=== PATIENT | female | born 1935 | race Hispanic/Latino ===

== ENCOUNTER → 2017-03-10 | Outpatient (CLI) | payer MEDICARE, BC | END | disposition home or self-care (01) | LOC: GMAH 14:19 | PROVIDERS: ATTEND Family Medicine | DX: N39.0 Urinary tract infection, site not specified (principal) ==

== ENCOUNTER → 2017-03-31 | Outpatient (CLI) | payer MEDICARE, BC ==
--- NOTE | 2017-03-31 15:50 | CT ---
EXAM DESCRIPTION: Abdomen t/Pelvis w/o Contrast CLINICAL HISTORY: 81 years, 81 years, Female, Female, GENERALIZED ABDOMINAL PAIN COMPARISON: None. TECHNIQUE: CT of the abdomen and pelvis is performed according to our non contrast protocol This exam was performed according to our departmental dose-optimization program, which includes automated exposure control, adjustment of the mA and/or kV according to patient size and/or use of iterative reconstruction technique. FINDINGS: The lung bases are clear without effusion or infiltrate and a small retrocardiac hiatal hernia is noted. The liver is normal in appearance without evidence of bile duct obstruction or focal mass. A small normal spleen is noted and unenhanced imaging of the pancreas shows no abnormality. Curvilinear calcification just behind the pancreatic body suggests an approximate 1 cm splenic artery aneurysm with a second smaller subcentimeter splenic artery aneurysm in the splenic hilum. The gallbladder is not identified and presumed surgically absent. The right kidney is severely atrophic and presumably related to old ischemic disease or inflammatory changes a small dense benign calcification is nonspecific in the upper pole of the atrophic right kidney. A small upper pole punctate calcification on the left is also apparent with mild cortical atrophy in this region with a probable 1 cm benign cyst posteriorly and medially involving the mid left kidney. The left renal collecting system appears very slightly full and represents either a mild UPJ obstruction with caliectasis or very possibly parapelvic renal cysts. No worrisome solid renal masses are noted. The retroperitoneum and aorta and vena cava is unremarkable. Levoscoliosis and degenerative changes in the spine are present without destructive bony process identified. The anterior abdominal wall is unremarkable. Large and small bowel caliber is normal without significant ascites or mesenteric adenopathy. The bladder is normally distended and the uterus is surgically absent without adnexal mass. IMPRESSION: 1. Atrophic right kidney with small benign calcification in the upper pole without hydronephrosis. 2. Hypertrophic left kidney with mild cortical scarring and benign calcification in the upper pole with either parapelvic cysts or mild UPJ obstruction of the left collecting system. Small benign cyst posteriorly is noted 3. Scoliosis and multilevel degenerative changes of the lumbar spine and incidental note of small hiatal hernia. 4. The gallbladder is not identified and presumed surgically absent. 5. Probable small splenic artery aneurysms 1 cm or less in size. 6. Small hiatal hernia. Electronically signed by: Seth Wright MD 03/31/2017 3:48 PM CDT
== END | disposition home or self-care (01) ==
LOC: CT 09:13
PROVIDERS: ATTEND Family Medicine
DX: R10.84 Generalized abdominal pain (principal)

== ENCOUNTER → 2017-09-15 | Outpatient (CLI) | payer MEDICARE, BC | END | disposition home or self-care (01) | LOC: GMAH 10:23 | PROVIDERS: ATTEND Family Medicine | DX: E78.2 Mixed hyperlipidemia (principal) ==

== ENCOUNTER → 2017-09-29 | Outpatient (CLI) | payer MEDICARE, BC | END | disposition home or self-care (01) | LOC: MAMMO 11:37 | PROVIDERS: ATTEND Family Medicine | DX: Z12.31 Encounter for screening mammogram for malignant neoplasm of breast (principal) ==

== ENCOUNTER → 2018-02-27 | Outpatient (CLI) | payer MEDICARE, BC | LOC: GMAH 14:28 | PROVIDERS: ATTEND Family Medicine | DX: N39.0 Urinary tract infection, site not specified (principal) ==

== ENCOUNTER 2018-03-15 17:30 | Emergency (ER) | payer MEDICARE, BC ==
[2018-03-15 17:50] VITALS: TEMP 99
[2018-03-15] MEDS: ACETAMINOPHEN 325 MG TAB PO ONE ×2 (18:24→18:26)
[2018-03-15] MEDS ORDERED: SODIUM CHLORIDE 0.9% 500ML 500 ML IVS ONE (18:50)
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
--- NOTE | 2018-03-15 19:23 | CT ---
EXAM DESCRIPTION: Head CLINICAL HISTORY: ams COMPARISON: None Available TECHNIQUE: Contiguous axial CT images of the head were obtained. Coronal and sagittal reconstructions were created from the axial data. This exam was performed according to our departmental dose-optimization program, which includes automated exposure control, adjustment of the mA and/or kV according to patient size and/or use of iterative reconstruction technique. FINDINGS: Poorly defined foci of decreased attenuation do not exert significant mass effect on surrounding structures and are likely sequela of prior insult, most likely on the basis of small vessel disease. There is no evidence of acute mass, mass effect, midline shift or hemorrhage. The ventricles and extra-axial CSF spaces are unremarkable. The brain parenchyma appears otherwise normal for the patient's age. No acute abnormalities of the bones is seen. IMPRESSION: No acute intracranial abnormality. MRI is much more sensitive and specific for acute ischemia than CT and if there is persistent concern for acute ischemia, I recommend MRI. Electronically signed by: Keyur Feldman 03/15/2018 7:22 PM CDT
[2018-03-15] MEDS ORDERED: cefTRIAXone SODIUM 1 GM in SODIUM CHL 0.9% 50ML MIN-BAG+ 50 ML IVPB ONE (20:13)
[2018-03-15] MEDS ORDERED: SODIUM CHL 0.9% 50ML MIN-BAG+ 50 ML IVPB ONE (20:40)
[2018-03-15] MEDS ORDERED: cefTRIAXone SODIUM 1 GM VIAL ONE (20:40)
[2018-03-15 21:04] VITALS: BP 124/70; O2SAT 97
== END 2018-03-15 21:04 | disposition home or self-care (01) ==
LOC: ER 17:30
DX: R53.83 Other fatigue (principal); N39.0 Urinary tract infection, site not specified; E86.0 Dehydration; T50.995A Adverse effect of other drugs, medicaments and biological substances, initial encounter; R74.0 Nonspecific elevation of levels of transaminase and lactic acid dehydrogenase [LDH]; I44.7 Left bundle-branch block, unspecified; E78.00 Pure hypercholesterolemia, unspecified; K21.9 Gastro-esophageal reflux disease without esophagitis; E07.9 Disorder of thyroid, unspecified; Z79.02 Long term (current) use of antithrombotics/antiplatelets
CPT/HCPCS: 70450; 80053; 81001; 82550; 82553; 84484; 85025; 87077; 87086; 87186; 93005; J0696; J7040; J7050

== ENCOUNTER 2018-04-05 07:23 | Emergency (ER) | payer MEDICARE, BC ==
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
[2018-04-05] MEDS ORDERED: ORPHENADRINE CITRATE 30 MG/ML AMP IM ONE (07:55)
[2018-04-05] MEDS ORDERED: KETOROLAC TROMETHAMINE INJ 30 MG/ML VIAL IM ONE (07:57)
--- NOTE | 2018-04-05 08:29 | RAD ---
EXAM DESCRIPTION: Cervical Spine,3 Views CLINICAL HISTORY: pain COMPARISON: MR spine the same visit. TECHNIQUE: Lateral image of the entire cervical spine, AP image. Open-mouth image C1-C2. FINDINGS: Cervical type vertebra: 7. Only C1-C5 are well seen on the lateral view. Disk spaces: C3-4, C4-5, and C5-6 with disc space narrowing and anterior endplate ridging. Facet joints: Included joints are unremarkable. Compression deformities: None. Bone Density: Normal. Alignment: Lack of normal lordosis. Atlanto-axial joint: Not well seen. Soft tissues: Negative. IMPRESSION: Limited study. Muscle spasms limiting lordosis and positioning of head properly for atlantoaxial view. Only C1-C5 are well seen on the lateral view. Spondylosis C3-4, C4-5, and C5-C6. Electronically signed by: Keyur Ramirez MD 04/05/2018 8:28 AM CDT
--- NOTE | 2018-04-05 08:34 | RAD ---
EXAM DESCRIPTION: Lumbar Spine 3 Views CLINICAL HISTORY: pain COMPARISON: 3 views cervical spine on the same visit. TECHNIQUE: AP, lateral radiographs of the entire lumbar spine. Spot-lateral radiograph of the lumbar sacral junction. FINDINGS: Lumbar type vertebra: 5. Transitional vertebrae: Rudimentary ribs on T12. Disk spaces: Narrowing L1-2, L2-3, and L3-4 with endplate ridging. Also endplate ridging at T10-11 and T11-12. Posterior and left narrowing at L5-S1. Facet joints: Bilateral arthrosis L5-S1, left more than right. Compression deformities: None. Bone Density: Minimally decreased. Alignment: Approximately 15 degrees lumbar dextroscoliosis. Trace retrolisthesis at L2-3. Abdomen: Bowel gas pattern is nonspecific. IMPRESSION: Multiple levels of disc space narrowing and spondylosis with approximately 15 degrees lumbar levoscoliosis. No compression type vertebral body fractures and no significant spondylolisthesis. Electronically signed by: Keyur Ramirez MD 04/05/2018 8:32 AM CDT
[2018-04-05 08:51] VITALS: BP 134/58; TEMP 97.3; O2SAT 95
== END 2018-04-05 08:51 | disposition home or self-care (01) ==
LOC: ER 07:23
DX: M54.2 Cervicalgia (principal); M51.16 Intervertebral disc disorders with radiculopathy, lumbar region; M62.838 Other muscle spasm; K21.9 Gastro-esophageal reflux disease without esophagitis; E07.9 Disorder of thyroid, unspecified; Z86.73 Personal history of transient ischemic attack (TIA), and cerebral infarction without residual deficits; Z79.02 Long term (current) use of antithrombotics/antiplatelets
CPT/HCPCS: 72040; 72100; J1885; J2360

== ENCOUNTER → 2018-04-18 | Outpatient (CLI) | payer MEDICARE, BC ==
--- NOTE | 2018-04-18 13:32 | MRI ---
EXAM DESCRIPTION: Brain w/o Contrast: MRI. CLINICAL HISTORY: CEREBROVASCULAR DISEASE UNSPECIFIED COMPARISON: MRI scan of the brain 05/31/2013. TECHNIQUE: Multiplanar, high-field MRI unit, multiple diffusion sequences, multiple conventional sequences without contrast. FINDINGS: Bilateral focal and confluent regions of hyperintense FLAIR and T2-weighted signal in the periventricular white matter and trujillo-white matter junctions of the cerebral hemispheres. Larger lesions abutting the ventricles. Relatively symmetric distribution bilaterally. . No hemorrhage, no cerebral edema, no mass-effect. Minimal hyperintense signal bilateral insular cortex. Also in the anterior limb and posterior aspect of the right basal ganglia. Normal signal in the brainstem and cerebellar hemispheres. No hemorrhage, no cerebral edema, no mass-effect. Concordance of the diffusion and non-diffusion sequences with no diffusion restriction. Cortical sulci, ventricles, and other CSF spaces, and the subdural spaces are normally configured for patients age. No effacement or displacement. No midline shift. No extra-axial hemorrhage. Normal flow signal void in the major vessels of the [place], and the venous sinuses. IACs are symmetric bilaterally. Normal signal in the bilateral mastoid air cells. No mass effect in the bilateral cerebellopontine angles. Pituitary gland occupies most of the sella. Base of the cerebellar tonsils is at the level of the foramen magnum. Paranasal sinuses are unremarkable. The bony calvarium is intact. IMPRESSION: 1. Bilateral confluent and focal white matter hyperintensities in the periventricular white matter more than the subcortical white matter has progressed minimally since the prior study. Relatively symmetric involvement bilaterally. Also involvement of the bilateral insular cortex in the right basal ganglia. Basal ganglia involvement is also slightly progressed since the prior study. Not associated with hemorrhage, mass effect, or diffusion restriction. This is most likely age-related changes and cerebral microvascular disease. 2. Normal noncontrast MRI diffusion study with no evidence of acute or subacute infarction. Electronically signed by: Keyur Ramirez MD 04/18/2018 1:30 PM CDT
== END ==
LOC: MRI 08:00
PROVIDERS: ATTEND Psychiatry & Neurology Neurology
DX: I67.9 Cerebrovascular disease, unspecified (principal); I65.1 Occlusion and stenosis of basilar artery; M54.12 Radiculopathy, cervical region

== ENCOUNTER → 2018-04-19 | Outpatient (CLI) | payer MEDICARE, BC | LOC: GMAH 17:08 | PROVIDERS: ATTEND Family Medicine | DX: N30.00 Acute cystitis without hematuria (principal) ==

== ENCOUNTER → 2018-07-11 | Outpatient (CLI) | payer MEDICARE, BC | LOC: GMAH 16:46 | PROVIDERS: ATTEND Family Medicine | DX: N39.0 Urinary tract infection, site not specified (principal) ==

== ENCOUNTER → 2018-09-28 | Outpatient (CLI) | payer MEDICARE, BC | LOC: GMAH 10:37 | PROVIDERS: ATTEND Family Medicine | DX: E78.2 Mixed hyperlipidemia (principal) ==

== ENCOUNTER → 2018-10-10 | Outpatient (CLI) | payer MEDICARE, BC ==
--- NOTE | 2018-10-11 15:42 | MAM ---
EXAM DESCRIPTION: 3D Screening BILATERAL : Digital Mammography. CLINICAL HISTORY: 82 years Female SCREEN . No complaints. No personal history of breast cancer. Remote family history of breast cancer. Childbirth. Postmenopausal. No HRT. Lifetime risk of developing breast cancer (Tyrer-Cuzick model)(%): 1.4. COMPARISON: Bilateral screening digital breast tomosynthesis September 29 2017.. No prior reports available. TECHNIQUE: Bilateral CC and MLO projection full-field images, digital tomosynthesis mammographic technique. Bilateral digital 2-D full-field MLO images. CAD not available for tomosynthesis or 2-D images. FINDINGS: The breast parenchymal density pattern is: Scattered areas of fibroglandular density. No skin thickening or nipple retraction. Bilateral vascular calcifications. Bilateral solitary microcalcifications. Mass density with heterogeneous calcifications in the middle third of the lateral right breast stable since the prior study. Also anterior coarse calcification associated with a small mass density stable. These are consistent with degenerating fibroadenomas. No new focal, stellate mass or density, focal asymmetry , and no suspicious microcalcifications bilaterally. Stable mammograms compared to prior study. IMPRESSION: Benign exam. BIRAD CATEGORY: 2 BENIGN FINDINGS. RECOMMENDATIONS: FOLLOW UP: Routine digital bilateral mammographic screening, one year interval from September 2018. Written communication explaining the IMPRESSION and follow-up, will be mailed to the patient and referring health care provider. According to the [employer], yearly mammograms are recommended starting at age 40 and continuing as long as a woman is in good health. Any breast change noted on a breast self-exam should be reported promptly to the patient's healthcare provider. Breast MRI is recommended for women with an approximately 20-25% or greater lifetime risk of breast cancer, including women with a strong family history of breast or ovarian cancer and women who have been treated for Hodgkin's disease. A negative mammographic report should not delay tissue diagnosis in patients with significant clinical history or physical findings. Extremely dense breast tissue limits the sensitivity of digital mammography. Electronically signed by: Keyur Ramirez MD 10/11/2018 3:40 PM [employer]
== END ==
LOC: MAMMO 09:00
PROVIDERS: ATTEND Family Medicine
DX: Z12.31 Encounter for screening mammogram for malignant neoplasm of breast (principal)

== ENCOUNTER → 2018-11-06 | Outpatient (CLI) | payer BC | LOC: GMAH 11:04 | PROVIDERS: ATTEND Family Medicine | DX: E03.8 Other specified hypothyroidism (principal) ==

== ENCOUNTER 2018-12-09 17:33 | Observation (INO) | payer MEDICARE, OTHER ==
[2018-12-09] MEDS ORDERED: PROMETHAZINE HCL INJ 25 MG in SODIUM CHLORIDE 0.9% 50ML 50 ML IVPB ONE (17:56)
[2018-12-09] MEDS ORDERED: PROMETHAZINE HCL INJ 25 MG/ML VIAL ONE (18:07)
[2018-12-09] MEDS ORDERED: SODIUM CHLORIDE 0.9% 50ML 50 ML ONE (18:08)
[2018-12-09] MEDS ORDERED: SOD CHL 3% *HYPERTONIC* 500ML 160 ML IVS ONE (18:20)
[2018-12-09] MEDS ORDERED: ACETYLCYSTEIN 20 % 6,000 MG/30 ML VIAL PO ONE (18:51)
--- NOTE | 2018-12-09 18:51 | RAD ---
EXAM DESCRIPTION: Abdomen Series CLINICAL HISTORY:83 years Female, [place] Comparison: May 08, 2018 FINDINGS: No focal lung consolidation. No pleural effusion. No pneumothorax. Cardiac and mediastinal silhouette is unremarkable. No acute osseous abnormality. lumbar spine degenerative changes. Soft tissues are unremarkable. Nonobstructive bowel gas pattern. No evidence of free air. IMPRESSION: No acute findings within the chest or abdomen. Electronically signed by: Epi Tucker MD 12/09/2018 6:48 PM CDT
--- NOTE | 2018-12-09 21:30 | CT ---
PROCEDURE: Abdomen/Pelvis w/Contrast (accession [id number]), CTA Chest (accession [id number]) CLINICAL HISTORY: 83 years Female nv, diaphoresis, cp, d-dimer, elevated lft, lipase COMPARISON: 03/31/2017. TECHNIQUE: Contiguous axial images were obtained through the chest during the infusion of IV contrast. Reformatted images obtained. MIP reformatted images obtained. Axial dynamic imaging was acquired through the abdomen and pelvis with multiplanar reconstructions. This exam was performed according to our department optimization program which includes automated exposure control, adjustment of the mA and/or kv according to patient size and/or use of iterative reconstruction technique. FINDINGS: Chest: The aorta is normal in caliber without dissection or rupture. Moderately large hiatal hernia. Mild cardiac enlargement. No pericardial or pleural effusion. No hilar or mediastinal adenopathy. No convincing evidence of pulmonary blood. Patchy dependent atelectasis. No evidence of acute consolidation. Abdomen pelvis: Fatty infiltration of the liver. There is mild intra and extrahepatic ductal dilatation likely as a result of cholecystectomy changes. There is clinical concern MRCP could be acquired. The gallbladder is absent. The pancreas and adrenal glands are unremarkable. Spleen is normal in size. There is atrophy of the right kidney with areas of calcification. Calcification in the superior pole the left kidney which may be vascular. Mild prominence of the left renal collecting system without definite obstructing stone noted. This may be as a result of distention of the urinary bladder. Moderate fecal material in the colon. No evidence of bowel obstruction. No free fluid is noted. Small amount of gas is present in the urinary bladder. No evidence of appendicitis. Aorta is normal in caliber. IMPRESSION:No evidence of pulmonary embolus. However at the time of dictation no thin section (less than 3 mm) axial imaging has been provided despite request. This is the standard for CTA chest. When these are made available, an addendum will be issued Hiatal hernia Fatty liver Prominent intra and extra hepatic ductal dilatation likely as a result of cholecystectomy changes Mild left hydronephrosis without delayed nephrogram. Suspect this is a result of distended urinary bladder. Recently passed stone or nonradiopaque obstruction cannot be entirely excluded Atrophic right kidney No additional evidence of acute process Electronically signed by: Ev Payton MD 12/09/2018 9:26 PM CDT
[2018-12-09] MEDS ORDERED: cefTRIAXone SODIUM 1 GM in SODIUM CHL 0.9% 50ML MIN-BAG+ 50 ML IVPB ONE (22:18)
[2018-12-09] MEDS ORDERED: PANTOPRAZOLE SODIUM IV 40 MG VIAL IV ONE (22:19)
--- NOTE | 2018-12-09 22:28 | ED.PDOC ---
History of Present Illness - General Chief Complaint: Chest Pain/LA Stated Complaint: vomiting,dizziness,chest pressure Time Seen by Provider: 12/09/18 17:38 Source: patient, family Exam Limitations: no limitations - History of Present Illness Initial Comments: the patient's an 83-year-old female brought in by her family secondary to nausea and vomiting starting earlier this morning. The patient thinks that she has gone up between 10 and 20 times. No blood and no bile. She is not really having any abdominal pain. She did break out in a sweat with throwing up once or twice and she did she feels [place] little bit of vomiting this one time. She did have significant anxiety with that. The patient has a history of some mild to moderately elevated liver function tests possibly related to biliary tree scarring from previous cholecystectomy. The patient received a dose of Phenergan here and has not had any further nausea or vomiting since. She denies any history of any hyponatremia. No fevers. No difficulties with urination. Timing/Duration: other - 16 hours Severity: moderate Improving Factors: nothing Worsening Factors: nothing Associated Symptoms: cough, malaise, nausea/vomiting Allergies/Adverse Reactions: Allergies Codeine Allergy (Verified 03/15/18 17:50) Shortness of Breath Home Medications: Ambulatory Orders Alendronate Sodium [Fosamax] 70 mg PO WKLY 07/12/15 Atorvastatin Calcium [Lipitor] 10 mg PO BEDTIME 07/12/15 Clopidogrel Bisulfate [Plavix] 75 mg PO BEDTIME 07/12/15 Levothyroxine Sodium 88 mcg PO DAILY 07/12/15 Pantoprazole Sodium 40 mg PO DAILY 07/12/15 ALPRAZolam [Xanax] 0.25 mg PO PRN 04/05/18 Tramadol HCl 50 mg PO PRN 04/05/18 Review of Systems - Review of Systems Constitutional: States: diaphoresis - with vomiting, malaise EENTM: States: no symptoms reported Respiratory: States: cough - only when she felt that she inhaled a little bit of vomitus Cardiology: States: chest pain - while vomiting Gastrointestinal/Abdominal: States: nausea, vomiting Genitourinary: States: no symptoms reported Musculoskeletal: States: no symptoms reported Skin: States: no symptoms reported Neurological: States: no symptoms reported Endocrine: States: no symptoms reported All other Systems: No Change from Baseline Past Medical History (General) - Patient Medical History Hx Stroke: Yes - TIA's Hx Cardiac Disorders: Yes - high cholesterol Hx Congestive Heart Failure: No Hx Thyroid Disease: Yes Hx Diabetes: No Hx Gastroesophageal Reflux: Yes Surgical History: cholecystectomy, Hysterectomy - Vaccination History Hx Influenza Vaccination: Yes Hx Pneumococcal Vaccination: No - Social History Hx Tobacco Use: No Hx Alcohol Use: No Hx Physical Abuse: No Hx Emotional Abuse: No - Female History Patient : No Family Medical History - Family History Mother Family History: Unknown Living Status: Physical Exam - Physical Exam General Appearance: Alert, Anxious, No apparent distress Eye Exam: bilateral normal Ears, Nose, Throat: hearing grossly normal, normal ENT inspection Neck: non-tender, supple Respiratory: lungs clear, normal breath sounds, no respiratory distress, no accessory muscle use Cardiovascular/Chest: normal peripheral pulses, regular rate, rhythm, no edema Peripheral Pulses: radial,right: 2+, radial,left: 2+, dorsalis pedis,right: 2+, dorsalis pedis,left: 2+ Gastrointestinal/Abdominal: non tender, soft, other - no palpable mass. No point tenderness. No rebound or peritoneal signs. Rectal Exam: deferred Back Exam: normal inspection, no CVA tenderness Extremity: normal range of motion, non-tender, normal inspection, no pedal edema, normal capillary refill Neurologic: clinical studies specialist II-XII nml as tested, alert, normal mood/affect, oriented x 3 Skin Exam: normal color Comments: Vital Signs - 24 hr 12/09/18 12/09/18 17:46 18:44 Temperature 98.8 F Pulse Rate 66 Pulse Rate [ 79 Left Brachial] Respiratory 20 Rate Blood Pressure 153/80 [Left Arm] O2 Sat by Pulse 99 Oximetry 12/09/18 17:55 Telemetry .CONTINUOUS 12/09/18 18:16 EKG .ONCE normal sinus rhythm at 70 bpm. Left axis deviation. Left bundle branch block. EKG is consistent with EKG from February 2018. No significant new changes. CT scan of the chest abdomen and pelvis fails to show any obvious acute pathology. She does have chronic changes of the renal system as well as of the biliary system.she does have moderate constipation. No obvious vascular acute pathology. Laboratory Results - last 24 hr 12/09/18 12/09/18 12/09/18 17:55 17:55 17:56 WBC 5.3 RBC 3.87 L Hgb 11.1 L Hct 33.8 L MCV 87.4 MCH 28.8 MCHC 32.9 L RDW 14.1 Plt Count 200 MPV 7.5 Absolute Neuts (auto) 3.70 Absolute Lymphs (auto) 1.30 Absolute Monos (auto) 0.30 Absolute Eos (auto) 0.00 Absolute Basos (auto) 0.00 Neutrophils % 69.0 Lymphocytes % 24.4 Monocytes % 6.1 Eosinophils % 0.1 L Basophils % 0.4 PT INR PTT (SP) 22.8 D-Dimer, Quantitative Sodium 129 L Potassium 3.8 Chloride 100 L Carbon Dioxide 20 L Anion Gap 12.8 BUN 16 Creatinine 0.79 BUN/Creatinine Ratio 20.3 H Random Glucose 109 H Serum Osmolality 260.7 L Calcium 8.4 Magnesium 1.9 Total Bilirubin 1.1 H AST 260 H ALT 120 H Alkaline Phosphatase 111 Creatine Kinase 135 CK-MB (CK-2) 5.2 H* CK-MB (CK-2) % 3.85 Troponin I < 0.02 B-Natriuretic Peptide 35.6 Serum Total Protein 7.6 Albumin 3.8 Globulin 3.8 H Albumin/Globulin Ratio 1.0 L Amylase 142 H Lipase 103 H Urine Color Urine Appearance Urine pH Ur Specific [place] Urine Protein Urine Glucose (UA) Urine Ketones Urine Blood Urine Nitrite Urine Bilirubin Urine Urobilinogen Ur Leukocyte Esterase Urine RBC Urine WBC Ur Epithelial Cells Urine Bacteria 12/09/18 12/09/18 12/09/18 17:56 17:57 19:45 WBC RBC Hgb Hct MCV MCH MCHC RDW Plt Count MPV Absolute Neuts (auto) Absolute Lymphs (auto) Absolute Monos (auto) Absolute Eos (auto) Absolute Basos (auto) Neutrophils % Lymphocytes % Monocytes % Eosinophils % Basophils % PT 10.1 INR 1.01 PTT (SP) D-Dimer, Quantitative 1.65 H* Sodium Potassium Chloride Carbon Dioxide Anion Gap BUN Creatinine BUN/Creatinine Ratio Random Glucose Serum Osmolality Calcium Magnesium Total Bilirubin AST ALT Alkaline Phosphatase Creatine Kinase CK-MB (CK-2) CK-MB (CK-2) % Troponin I B-Natriuretic Peptide Serum Total Protein Albumin Globulin Albumin/Globulin Ratio Amylase Lipase Urine Color Yellow Urine Appearance Sl cloudy Urine pH 7.0 Ur Specific [place] 1.010 Urine Protein Negative Urine Glucose (UA) Negative Urine Ketones Negative Urine Blood Negative Urine Nitrite Negative Urine Bilirubin Negative Urine Urobilinogen 0.2 Ur Leukocyte Esterase Trace H Urine RBC 1-3 Urine WBC 3-5 H Ur Epithelial Cells 3-5 Urine Bacteria 2+ H Progress - Progress Progress: 12/09/18 22:32 the patient is an 83-year-old female presenting secondary to nausea and vomiting for the better part of the day. This was fairly acute in onset. No evidence of any obstruction on the CT scan. This is most likely a viral or bacterial gastroenteritis. The patient is receiving a dose of Rocephin for what is a small urinary tract infection as well as for the possible mild episode of aspiration earlier with a vomiting episode. The patient is receiving hypertonic saline for correction of hyponatremia which may also be contributing to continued nausea. The patient has responded very well to a dose of Phenergan and has not required any additional dosing. Admit overnight for correction of the above issues. She is receiving small amount of additional IV fluid. The patient does have chronic changes in her biliary system. If the patient fails to improve with above measures then additional GI intervention and workup may be warranted if it is felt that that the chronic biliary problem is progressing and starting to give symptoms. She has received a dose of Protonix. She is resting comfortably currently. Admit for above measures. Departure - Departure Clinical Impression: Acute gastroenteritis, Cystitis, Hyponatremia, Advanced age Disposition: Admit Patient Departure Forms: ED Discharge - Pt. Copy, Patient Portal Self Enrollment Referrals: Earl Morrissey MD [Primary Care Provider] - 1-2 Weeks Home Medications: Ambulatory Orders Alendronate Sodium [Fosamax] 70 mg PO WKLY 07/12/15 Atorvastatin Calcium [Lipitor] 10 mg PO BEDTIME 07/12/15 Clopidogrel Bisulfate [Plavix] 75 mg PO BEDTIME 07/12/15 Levothyroxine Sodium 88 mcg PO DAILY 07/12/15 Pantoprazole Sodium 40 mg PO DAILY 07/12/15 ALPRAZolam [Xanax] 0.25 mg PO PRN 04/05/18 Tramadol HCl 50 mg PO PRN 04/05/18 Decision To Admit - Decistion To Admit Decision to Admit Reason: Medical Nature Decision to Admit Date: 12/09/18 Decision to Admit Time: 22:35
[2018-12-09] MEDS ORDERED: cefTRIAXone SODIUM 1 GM VIAL ONE (22:29)
[2018-12-09] MEDS ORDERED: SODIUM CHL 0.9% 50ML MIN-BAG+ 50 ML IVPB ONE (22:30)
[2018-12-09] MEDS ORDERED: SODIUM CHLORIDE 0.9% (FLUSH) 10 ML SYG IV PRN (23:43)
[2018-12-09] MEDS ORDERED: ONDANSETRON INJ 4 MG/2 ML VIAL IV PRN (23:43)
[2018-12-09] MEDS ORDERED: IV SET AND CAP CHANGE INJ INJ SCH (23:45)
[2018-12-09] MEDS ORDERED: KCL 20 MEQ/NS 1,000 ML IVS PRN (23:52)
[2018-12-10] MEDS ORDERED: PANTOPRAZOLE SODIUM IV 40 MG VIAL IV SCH (06:30)
[2018-12-10] MEDS ORDERED: SODIUM CHL 0.9% 50ML MIN-BAG+ 50 ML IVPB ONE (09:31)
[2018-12-10] MEDS ORDERED: cefTRIAXone SODIUM 1 GM VIAL ONE (09:31)
[2018-12-10] MEDS ORDERED: cefTRIAXone SODIUM 1 GM in SODIUM CHL 0.9% 50ML MIN-BAG+ 50 ML IVPB SCH (10:00)
[2018-12-10 17:43] VITALS: BP 163/79; TEMP 97.8; O2SAT 97
[2018-12-10] MEDS ORDERED: CLOPIDOGREL 75 MG TAB PO SCH (21:00)
[2018-12-10] MEDS ORDERED: ATORVASTATIN 10 MG TAB PO SCH (21:00)
[2018-12-11] MEDS ORDERED: LEVOTHYROXINE SODIUM 0.088 MG TAB PO SCH (06:30)
[2018-12-11] MEDS ORDERED: PANTOPRAZOLE SODIUM TAB 40 MG PO SCH (06:30)
--- NOTE | 2018-12-11 08:37 | SSS ---
SUPERVISING PHYSICIAN: Carlo Carpenter MD CHIEF COMPLAINT: Nausea and vomiting. HISTORY OF PRESENT ILLNESS: Ms. Reddy is an 83-year-old, female that was brought to the Emergency Room by her family after she started having some nausea and vomiting earlier the morning yesterday. The patient thinks it was around 10 o'clock when she ate and around 1 o'clock, she started having nausea and vomiting where she had at least 3 episodes. In the Emergency Room, initial workup showed she had a normal white count. Chemistries showed sodium 129, glucose 109. Liver enzymes were elevated with bilirubin 1.1, both AST and ALT were elevated as well as amylase and lipase. Urinalysis showed just a trace of leukocyte esterase and microscopic revealing 1 to 3 RBCs, 3+ bacteria, 3 to 5 WBCs. She was started on 3% hypertonic saline solution, given Phenergan, Protonix and Zofran. Her symptoms improved. She also had a CT of the abdomen with contrast and CT of the chest which showed no evidence of pulmonary embolism. Hiatal hernia was noted as well as fatty liver. There was also note of prominent intra and extrahepatic ductal dilation, likely result of cholecystectomy changes. There is some mild left hydronephrosis without delayed nephrogram, suspect result of distended urinary bladder although recently passed stone or nonradiopaque obstruction could not be excluded. Also of note was an atrophic right kidney and no other evidence of acute process. She is now going to be placed in Observation for further evaluation and ongoing hydration therapy due to persistent nausea and vomiting and unable to hold any oral medications in. She was placed in Observation in stable condition. PAST MEDICAL HISTORY: 1. Multiple mini strokes/transient ischemic attacks. 2. Anxiety disorder. 3. Obstructive sleep apnea on CPAP. 4. Single kidney due to atrophy of a kidney as a young child. 5. Hypothyroidism. 6. Gastroesophageal reflux disease. PAST SURGICAL HISTORY: 1. Cholecystectomy. 2. Rotator cuff repair, both shoulders. 3. Hysterectomy. HOME MEDICATIONS: 1. Pantoprazole 40 mg daily. 2. Xanax 0.25 mg as needed. 3. Lipitor 10 mg at bedtime. 4. Fosamax 70 mg weekly. 5. Plavix 75 mg at bedtime. 6. Levothyroxine 88 mcg daily. 7. Tramadol 50 mg p.r.n. ALLERGIES: CODEINE. FAMILY HISTORY: Mother in her 60s from multiple strokes. Father in his 80s after a heart attack. She has four siblings, a brother who was an insulin dependent diabetic who in his 60s, one sister in her 50s from a brain aneurysm, one sister is 87 and has had mini strokes, another older sister is 86 and fairly healthy. She has four children, one at age 45 with diabetes, brain aneurysm. She has another son who is alive and healthy and two daughters, one has diabetes and cardiovascular disease, the other is fairly healthy with no major medical problems. SOCIAL HISTORY: The patient lives in [place]. She is and retired. She used to work in the house cleaning industry. She has never smoked, drank and does not use illicit drugs. REVIEW OF SYSTEMS: CONSTITUTIONAL: Positive for diaphoresis with vomiting, general malaise, nausea. HEENT: Negative for sore throats, earaches, nasal congestion, vision changes. RESPIRATORY: Positive for cough secondary to WILFREDO inhibitors. Negative for any shortness of breath, wheezing. CARDIOVASCULAR: Chest discomfort with vomiting, no peripheral edema, no syncopal episodes. GASTROINTESTINAL: As noted in history of present illness, nausea, vomiting. No diarrhea, constipation or abdominal pain. GENITOURINARY: Negative for dysuria, hematuria, polyuria. SKIN: Negative for lesions or rashes. NEUROLOGIC: Negative for ataxia, seizures, syncopal episodes, headaches. PHYSICAL EXAMINATION: VITAL SIGNS: On admission, temperature 98.8. Pulse 79. Blood pressure 153/80. Respirations 20. Oxygen saturation 99% on room air. Discharge vital signs showed temperature 97.8. Pulse 59. Blood pressure 163/79. Respirations 20. Oxygen saturation 97% on room air. Admission weight 69.3 kg. GENERAL: On admission to the Medical/Surgical Floor, the patient was without any obvious acute distress. She was resting comfortably with no complaints of nausea or vomiting. She was alert. HEENT: Tympanic membranes clear bilaterally. Oropharynx is pink, moist without any lesions. NECK: Supple, nontender with full range of motion. No jugular venous distention noted. RESPIRATORY: Lungs clear to auscultation bilaterally without any rhonchi, wheezes, or rales. CARDIOVASCULAR: Regular rate and rhythm without any appreciable murmurs, gallops, or rubs. ABDOMEN: Soft, nontender. No point tenderness. No rebound or peritoneal signs. Positive bowel sounds. RECTAL: Deferred. BACK: Normal to inspected with no CVA tenderness. EXTREMITIES: There is no cyanosis, clubbing or edema. NEUROLOGIC: The patient is alert and oriented times three. Cranial nerves II- XII are grossly intact. Facial features are symmetrical. Extraocular movements are within normal limits. There is no nystagmus noted. SKIN: Dry and normal color with no lesions or rashes. LABORATORY: CBC showed normal white count of 5,300, hemoglobin 11.1, hematocrit 32.8, platelet count 200,000. Differential without a left shift. Coagulation studies showed elevated D-dimer of 1.65 with PT 10.1 and PTT 22.8. Chemistries showed sodium 129, potassium 3.8, carbon dioxide 20, BUN 16, creatinine 0.79, blood glucose 109 on admission, calcium 8.4. Liver functions showed some elevation with bilirubin 1.1, initially with AST 260, ALT 120. Alkaline phosphatase was within normal limits. Troponin less than 0.02. Amylase and lipase both elevated at 142 and 143 respectively. At discharge, electrolytes were normal with BUN 13, creatinine 0.83. Amylase had normalized, lipase had normalized. Her liver enzymes were returning to baseline levels with AST 100, ALT 88, alkaline phosphatase normal at 90 with normal bilirubin at 0.9. Urinalysis showed trace intact blood with microscopic revealing 1 to 3 RBCs, 3 to 5 WBCs, 3 to 5 epithelials, 2+ bacteria. MICROBIOLOGY: Urine culture pending. RADIOLOGY: CT of the chest and CT of abdomen and pelvis with contrast. On CT of the chest, radiologic interpretation showed no evidence of pulmonary embolus. There was note of fatty liver with intra and extrahepatic ductal dilation likely as result of cholecystectomy changes. Also noted was a hiatal hernia and some mild left hydronephrosis without delayed nephrogram suspected result of distended bladder. There is also note of atrophic kidney. Please see that report for full details. HOSPITAL COURSE: Ms. Reddy was admitted from the Emergency Room after she was treated for nausea and vomiting with Phenergan, fluids and hyponatremia with 3% hypertonic saline solution. She had resolution of her symptoms before admitting to the Floor. Once she got to the Floor, the hypertonic saline was discontinued and she was continued on normal saline infusion. She had no return of her nausea or vomiting, no abdominal pains, no chest pains and her labs on the morning of discharge were improving and returning to baseline. She was started on a full liquid diet and advanced prior to discharge to a regular diet and was tolerating it without any complications. She had no further complaints and was felt stable and improved clinically enough to discharge home and continue with outpatient management. ADMISSION DIAGNOSIS: 1. Hyponatremia, uncertain etiology, but possibly due to acute gastroenteritis with nausea and vomiting. 2. Nausea and vomiting, likely due to acute gastroenteritis. 3. Elevated liver enzymes and pancreatic enzymes, uncertain etiology, but probably due to acute dehydration and acute viral illness with levels return to baseline with fluid and replacement. 4. Elevated D-dimer with no evidence of pulmonary embolus noted on CT of the chest, probably due to acutely elevated pancreatic enzymes, but no evidence of any clinical complications. 5. History of multiple transient ischemic attacks on a statin and Plavix prior to admission. 6. Hypothyroidism on supplementation. 7. Single kidney. DISCHARGE DIAGNOSIS: 1. Acute gastroenteritis, likely viral, with symptoms resolving with Phenergan and fluids. 2. Hyponatremia with levels returning to baseline after infusion of normal saline, probably due to underlying nausea and vomiting. 3. Elevated liver enzymes and pancreatic enzymes, probably due to dehydration and #1, although etiology is uncertain at this point and she needs to be followed as an outpatient in regards to the elevated liver enzymes. 4. Fatty liver, likely nonalcoholic fatty liver disease, possibly related to some of her elevated liver function tests, needing followup as an outpatient. 5. History of anxiety on benzodiazepines p.r.n. 6. Obstructive sleep apnea utilizing CPAP. 7. Noncomplicated cystitis with cultures pending with the patient being asymptomatic. PLAN: The patient is clinically stable and improved from admission, tolerating diet, therefore, she is discharged to followup with Dr. Morrissey in the following week. She was instructed to call Dr. Morrissey's office on Tuesday. She will need followup with Dr. Morrissey and further addressing the elevated liver functions and findings on CT in regards to possible dilated duct system, possibly at some point further evaluation with MRCP. She is instructed to advance her diet as tolerated. Activity to increase as tolerated. Medications at discharge include home medications: 1. Pantoprazole 40 mg daily. 2. Xanax 0.25 mg daily. 3. Lipitor 10 mg daily. 4. Fosamax 70 mg weekly. 5. Plavix 75 mg at bedtime. 6. Levothyroxine 88 mcg daily. 7. Tramadol 50 mg p.r.n. 8. Bactrim DS 1 tablet b.i.d. for 3 days as a new medication. DISPOSITION: The patient was discharged to care of family members and instructed to return to the Emergency Room should she have any worsening symptoms. CONDITION ON DISCHARGE: Stable and improved. #[id number] [facility]
== END 2018-12-10 17:55 | disposition home or self-care (01) ==
LOC: ER 17:33 → INTOOBSV 23:19 → MS 23:19 → OBSVTOIN 23:19 → UNDODISOB 12-10 10:10
PROVIDERS: ADMIT Nurse Practitioner Family; ATTEND Nurse Practitioner Family
DX: K52.9 Noninfective gastroenteritis and colitis, unspecified (principal); E87.1 Hypo-osmolality and hyponatremia; N30.00 Acute cystitis without hematuria; R74.8 Abnormal levels of other serum enzymes; K76.0 Fatty (change of) liver, not elsewhere classified; R79.89 Other specified abnormal findings of blood chemistry; R07.89 Other chest pain; F41.9 Anxiety disorder, unspecified; G47.33 Obstructive sleep apnea (adult) (pediatric); E03.9 Hypothyroidism, unspecified; I44.7 Left bundle-branch block, unspecified; K59.00 Constipation, unspecified; K21.9 Gastro-esophageal reflux disease without esophagitis; Q60.0 Renal agenesis, unilateral; K44.9 Diaphragmatic hernia without obstruction or gangrene; N13.30 Unspecified hydronephrosis; Z79.02 Long term (current) use of antithrombotics/antiplatelets; Z79.890 Hormone replacement therapy; Z79.899 Other long term (current) drug therapy; Z88.6 Allergy status to analgesic agent; Z86.73 Personal history of transient ischemic attack (TIA), and cerebral infarction without residual deficits; Z90.49 Acquired absence of other specified parts of digestive tract; Z90.710 Acquired absence of both cervix and uterus; Z82.3 Family history of stroke; Z82.49 Family history of ischemic heart disease and other diseases of the circulatory system; Z83.3 Family history of diabetes mellitus
CPT/HCPCS: 96366; 96367; 96365; 96375; 96376; J0696 ×2; J2550; A4216; J7799; J3480; J7050 ×2; 85379; 82553; 80053 ×2; 36415 ×2; 82150 ×2; 81001; 85025; 82550; 83690 ×2; 83735; 85730; 85610; 84484; 83880; 74019; 71275; 74177; 94760 ×2; 99285; 93005

== ENCOUNTER → 2019-02-28 | Outpatient (CLI) | payer MEDICARE ==
--- NOTE | 2019-03-01 09:32 | MRI ---
EXAM DESCRIPTION: Abdomen. MRCP: Magnetic Resonance Imaging. CLINICAL HISTORY: ABNORMAL IMAGING OF LIVER AND BILIARY. Prior cholecystectomy. COMPARISON: CT abdomen 12/09/2018. TECHNIQUE: Multiplanar MRI, multiple sequences, non-contrast FINDINGS: The intrahepatic biliary ducts, common hepatic duct, and common bile duct are well demonstrated. Maximum diameter is 8.5 mm. This is mildly dilated. No intraluminal defects are noted. No mass in the pancreatic head or duodenum at the sphincter. Normal caliber of the pancreatic duct. No focal lesions in the liver. Fatty signal diffusely. No enlargement. Spleen and adrenal glands are negative. Small hiatal hernia. No ascites. Approximately 1 cm cyst in the posterior proximal body of the pancreas with no connection to the duct. No inflammatory changes. Small right kidney with cortical atrophy minimal perirenal fluid bilaterally. Extrarenal pelvis but no hydronephrosis. Approximately 1 cm cyst and smaller paracortical cysts left kidney upper pole no hydronephrosis or perirenal fluid. Small extrarenal pelvis but included ureter not dilated. Ectasia in the abdominal aorta but included segments with normal caliber and no periaortic soft tissue mass or fluid. Included small bowel normal caliber. Partial visualization terminal ileum unremarkable. Included colon normal caliber with mostly fluid. Included abdominal wall no defects. Included soft tissues are negative. Lumbar scoliosis convex left. Spondylosis at several levels and in the thoracic spine. No lytic or blastic lesions. No dominant nodules or fluid in the included lung bases and pleura. IMPRESSION: 1. MRCP showing mild dilation of the distal hepatic ducts, more left lobe, and common bile duct. No intraluminal mass. No extrinsic mass effect. No ascites. 2. Right renal cortical atrophy. No hydronephrosis. Left renal cysts. Electronically signed by: Keyur Ramirez MD 03/01/2019 9:30 AM CDT
== END ==
LOC: MRI 07:59
PROVIDERS: ATTEND Internal Medicine Gastroenterology
DX: R93.2 Abnormal findings on diagnostic imaging of liver and biliary tract (principal); N28.1 Cyst of kidney, acquired; N26.1 Atrophy of kidney (terminal)

== ENCOUNTER → 2019-03-16 | Outpatient (CLI) | payer MEDICARE ==
--- NOTE | 2019-03-16 13:07 | RAD ---
EXAM DESCRIPTION: Chest,2 Views CLINICAL HISTORY: Cough COMPARISON: None TECHNIQUE: PA/lateral FINDINGS: There is no acute appearing cardiac or pulmonary abnormality. Heart size is normal with normal pulmonary vascularity. No pleural effusion or pneumothorax. Lungs are clear with no consolidating infiltrate. Lateral view shows intact sternum and T-spine. IMPRESSION: No acute process is identified in the chest. Electronically signed by: Jacky Castanon MD 03/16/2019 1:05 PM CDT
== END ==
LOC: RAD 12:37
PROVIDERS: ATTEND Otolaryngology Otolaryngology/Facial Plastic Surgery
DX: R05 Cough (principal)

== ENCOUNTER → 2019-10-09 | Outpatient (CLI) | payer MEDICARE | LOC: GMA MATASK 10:37 | PROVIDERS: ATTEND Family Medicine | DX: E03.8 Other specified hypothyroidism (principal); E78.2 Mixed hyperlipidemia ==

== ENCOUNTER → 2019-10-11 | Outpatient (CLI) | payer MEDICARE ==
--- NOTE | 2019-10-11 17:27 | MAM ---
EXAM DESCRIPTION: 3D Screening BILATERAL : Digital Mammography. CLINICAL HISTORY: 83 years Female SCREENING . No complaints. No personal history of breast cancer. Remote family history of breast cancer. Menarche age 14. Childbirth age 23. Postmenopausal age unknown. No HRT. Lifetime risk of developing breast cancer (Tyrer-Cuzick model)(%): 3.2. COMPARISON: Lateral screening digital breast tomosynthesis September 2018 and September 2017. TECHNIQUE: Bilateral CC and MLO projection full-field images, digital tomosynthesis mammographic technique. Bilateral digital 2-D full-field MLO images. CAD available for 2-D images. FINDINGS: The breast parenchymal density pattern is: Scattered areas of fibroglandular density. No skin thickening or nipple retraction. Bilateral vascular calcifications. Calcifications associated with a vague soft tissue density in the anterior right breast are stable, in number with some of the calcifications enlarging since 2018. Most likely a degenerating fibroadenoma. No new focal, stellate mass or density, focal asymmetry , and no suspicious microcalcifications bilaterally. Stable mammograms compared to prior study. IMPRESSION: Benign exam. BIRAD CATEGORY: 2 BENIGN FINDINGS. RECOMMENDATIONS: FOLLOW UP: Routine digital bilateral mammographic screening, one year interval from September 2019. Written communication explaining the IMPRESSION and follow-up, will be mailed to the patient and referring health care provider. According to the [employer], yearly mammograms are recommended starting at age 40 and continuing as long as a woman is in good health. Any breast change noted on a breast self-exam should be reported promptly to the patient's healthcare provider. Breast MRI is recommended for women with an approximately 20-25% or greater lifetime risk of breast cancer, including women with a strong family history of breast or ovarian cancer and women who have been treated for Hodgkin's disease. A negative mammographic report should not delay tissue diagnosis in patients with significant clinical history or physical findings. Extremely dense breast tissue limits the sensitivity of digital mammography. Electronically signed by: Keyur Ramirez MD 10/11/2019 5:26 PM ENVIRONMENTAL ENGINEERING TECHNICIAN
== END ==
LOC: MAMMO 10:00
PROVIDERS: ATTEND Family Medicine
DX: Z12.31 Encounter for screening mammogram for malignant neoplasm of breast (principal)

== ENCOUNTER → 2020-02-05 | Outpatient (CLI) | payer MEDICARE | LOC: GMA MATASK 16:18 | PROVIDERS: ATTEND Family Medicine | DX: E78.2 Mixed hyperlipidemia (principal); E55.9 Vitamin D deficiency, unspecified; E03.9 Hypothyroidism, unspecified; I10 Essential (primary) hypertension ==

== ENCOUNTER → 2020-10-08 | Outpatient (CLI) | payer MEDICARE | LOC: GMA MATASK 11:05 | PROVIDERS: ATTEND Family Medicine | DX: E03.9 Hypothyroidism, unspecified (principal); I10 Essential (primary) hypertension ==

== ENCOUNTER → 2020-10-23 | Outpatient (CLI) | payer MEDICARE ==
--- NOTE | 2020-10-24 09:17 | RAD ---
EXAM: Knee,Left Complete INDICATION: 84 years Female, KNEE PAIN COMPARISON: None available FINDINGS: 4 views of the left knee were performed. Osteopenia. No acute fracture is identified. No joint dislocation. No destructive osseous lesion. Mild degenerative change in the knee with joint space narrowing and subchondral sclerosis. No apparent suprapatellar joint effusion. IMPRESSION: Mild degenerative change in the left knee without fracture or dislocation. Electronically signed by: Laura Pruett MD 10/24/2020 9:16 AM [facility]
--- NOTE | 2020-10-27 16:13 | RAD ---
XR PELVIS HISTORY: Hip pain. COMPARISON: None. FINDINGS: The hip joints, sacroiliac joints, and pubic symphysis are intact. Bowel gas obscures portions of the sacrum which limits evaluation. The visualized lower lumbar spine is intact. Generalized osteopenia is present. IMPRESSION: No acute pelvic fracture is seen. Electronically signed by: Adam Duque MD 10/27/2020 4:12 PM [facility]
== END ==
LOC: RAD 11:54
PROVIDERS: ATTEND Orthopaedic Surgery
DX: M17.12 Unilateral primary osteoarthritis, left knee (principal); M25.552 Pain in left hip